=== PATIENT | female | born 1990 | race Caucasian/White ===

== ENCOUNTER 2017-10-15 20:46 | Emergency (ER) | payer BC, OTHER, SELFPAY | END 2017-10-15 23:13 | disposition home or self-care (01) | LOC: ERS 20:46 | DX: R05 Cough (principal); F90.9 Attention-deficit hyperactivity disorder, unspecified type; F31.9 Bipolar disorder, unspecified; F17.210 Nicotine dependence, cigarettes, uncomplicated; J45.909 Unspecified asthma, uncomplicated | CPT/HCPCS: 99283; J7620 ==

== ENCOUNTER 2019-11-13 15:36 | Emergency (ER) | payer SELFPAY ==
--- NOTE | 2019-11-13 17:06 | RAD ---
EXAM: LEFT ELBOW FOUR VIEWS: 11/13/19 HISTORY: Injury following a slip and fall with pain and swelling. FINDINGS: There is no evidence for acute fracture or dislocation. No significant elbow joint effusion demonstra phuong. IMPRESSION: No evidence for acute fracture or dislocation. If the patient has persistent or worsening pain which does not resolve following trauma, consideratio n for short term follow-up study in 1-2 weeks or additional imaging. POS: [facility]
[2019-11-13] MEDS ORDERED: Cyclobenzaprine 10 MG TAB ONE (17:07)
[2019-11-13] MEDS ORDERED: HYDROcodone/Acetaminophen 5/325 mg Tablet ONE (17:07)
== END 2019-11-13 17:40 | disposition home or self-care (01) ==
LOC: ERS 15:36
DX: M25.522 Pain in left elbow (principal); J45.909 Unspecified asthma, uncomplicated; F32.9 Major depressive disorder, single episode, unspecified; F17.210 Nicotine dependence, cigarettes, uncomplicated; W01.0XXA Fall on same level from slipping, tripping and stumbling without subsequent striking against object, initial encounter
CPT/HCPCS: 29105

== ENCOUNTER 2019-12-11 01:40 | Emergency (ER) | payer SELFPAY ==
[2019-12-11] MEDS ORDERED: Ketorolac Tromethamine 30 MG/ML VIAL ONE (02:08)
[2019-12-11] MEDS ORDERED: diphenhydrAMINE 50 MG/ML VIAL ONE (02:08)
[2019-12-11] MEDS ORDERED: Acetaminophen 500 MG TAB ONE (02:09)
[2019-12-11] MEDS ORDERED: Prochlorperazine 10 MG/2 ML VIAL IVP PRN (02:14)
[2019-12-11] MEDS ORDERED: Prochlorperazine 10 MG/2 ML VIAL IVP SCH (02:30)
== END 2019-12-11 02:46 | disposition home or self-care (01) ==
LOC: ERS 01:40
DX: R51 Headache (principal); J45.909 Unspecified asthma, uncomplicated; F31.9 Bipolar disorder, unspecified; F90.9 Attention-deficit hyperactivity disorder, unspecified type; F17.210 Nicotine dependence, cigarettes, uncomplicated
CPT/HCPCS: 96374; 96375; J0780; J1200; J1885